=== PATIENT | male | born 1990 | race Caucasian/White ===

== ENCOUNTER 2023-01-13 15:38 | Inpatient (IN) | payer OTHER, BC ==
[~2023-01-13 15:38] MED LIST: Iopamidol-370 76% 500 ML MDV (1 ML CHARGE) ONE
[2023-01-13] MEDS ORDERED: fentaNYL 50 mcg/mL 1 mL Vial ONE (15:49)
[2023-01-13 16:04] LABS: #Eosinphils 0.1 thou/uL (0.0-0.7); #Monocytes 0.6 thou/uL (0.11-0.59); #Neutrophils 6.2 thou/uL (1.40-6.50); %Basophils 0.4 % (0.0-1.0); %Eosinophils 1.2 % (0.0-10.0); %Lymphocytes 23.9 % (21.0-51.0); %Monocytes 6.2 % (0.0-10.0); %Neutrophils 67.9 % (42.0-75.0); Hemoglobin 16.8 g/dL (14.0-18.0); Mean Corpuscular HGB CONC 34.3 g/dL (32.0-36.0); Mean Corpuscular Hemoglobin 31.1 pg (27.0-31.0); Mean Corpuscular Volume 90.7 fl (78.0-98.0); Mean Platelet Volume 9.8 fL (7.4-10.4); Platelet Count 215 10x3/uL (130-400); RBC Distribution Width 13.2 % (11.5-14.5); White Blood Cell (WBC) Count 9.1 10x3/uL (4.8-10.8)
[2023-01-13] MEDS ORDERED: Bacitracin 1 PK ONE (16:06)
[2023-01-13] MEDS ORDERED: Lidocaine 1% w/Epinephrine 1:100K 20 ML VIAL ONE (16:06)
[2023-01-13] MEDS ORDERED: Ketorolac Tromethamine 30 MG/ML VIAL ONE (16:18)
[2023-01-13] MEDS ORDERED: Ondansetron PF 4 MG/2 ML Vial ONE (16:22)
[2023-01-13 16:31] LABS: ALT (SGPT) 41 U/L (8-55); AST (SGOT) 48 U/L (5-34); Albumin 4.6 g/dL (3.5-5.0); Alkaline Phosphatase 47 U/L (40-110); Anion Gap 15 mmol/L (10-20); BUN (Urea Nitrogen) 22 mg/dL (8.9-20.6); Bilirubin, Total 0.8 mg/dL (0.2-1.2); Calc. Creatinine Clearance 0 mL/min (70-130); Calcium 9.5 mg/dL (7.8-10.44); Carbon Dioxide 22 mmol/L (22-29); Chloride 105 mmol/L (98-107); Estimated GFR 81; Globulin 2.5 g/dL (2.4-3.5); Glucose 103 mg/dL (70-105); Lipase 64 U/L (8-78); Potassium 3.6 mmol/L (3.5-5.1); Protein, Total 7.1 g/dL (6.0-8.3); Sodium 138 mmol/L (136-145)
[2023-01-13] MEDS ORDERED: Ipratropium/Albuterol 3 ML NEB NEB PRN (17:34)
[2023-01-13] MEDS ORDERED: hydrALAZINE 20 MG/ML VIAL SLOW IVP PRN (17:34)
[2023-01-13] MEDS ORDERED: Ondansetron PF 4 MG/2 ML Vial IVP PRN (17:34)
[2023-01-13] MEDS ORDERED: Glucagon 1 MG/ML KIT IM PRN (17:34)
[2023-01-13] MEDS ORDERED: Dextrose 50% Abboject 50 ML SYRINGE SLOW IVP PRN (17:34)
[2023-01-13] MEDS ORDERED: TETANUS, DIPHTHERIA TOX,ADULT (TDVAX) 0.5 ML VIAL IM ONE (17:34)
[2023-01-13] MEDS ORDERED: Dextrose 5% in Water 1,000 ML IV PRN (17:34)
[2023-01-13] MEDS ORDERED: Morphine 4 MG/ML VIAL ONE (18:50)
[2023-01-13] MEDS: Sodium Chloride 0.9% 1,000 ML IV SCH (20:23)
[2023-01-13] MEDS: Acetaminophen 500 MG TAB PO SCH (20:24)
[2023-01-13] MEDS: traMADol HCl 50 MG TAB PO PRN (20:26)
[2023-01-13] MEDS: Famotidine/PF 20 mg/2ml Vial SLOW IVP SCH (20:27)
[2023-01-13 21:46] LABS: #Monocytes 0.8 thou/uL (0.11-0.59); #Neutrophils 10.4 thou/uL (1.40-6.50); %Basophils 0.2 % (0.0-1.0); %Eosinophils 0.1 % (0.0-10.0); %Lymphocytes 9.5 % (21.0-51.0); %Neutrophils 83.8 % (42.0-75.0); Hematocrit 44.1 % (42.0-52.0); Hemoglobin 14.9 g/dL (14.0-18.0); Mean Corpuscular HGB CONC 33.8 g/dL (32.0-36.0); Mean Corpuscular Hemoglobin 30.7 pg (27.0-31.0); Mean Corpuscular Volume 90.9 fl (78.0-98.0); Mean Platelet Volume 9.9 fL (7.4-10.4); Platelet Count 195 10x3/uL (130-400); RBC Distribution Width 13.2 % (11.5-14.5); Red Blood Cell (RBC) Count 4.85 mill/uL (4.70-6.10); White Blood Cell (WBC) Count 12.4 10x3/uL (4.8-10.8)
[2023-01-13] MEDS: Morphine 2 MG/ML VIAL SLOW IVP PRN (23:03)
[2023-01-13 23:39] VITALS: BMI 32.5
[2023-01-14] MEDS: Acetaminophen 500 MG TAB PO SCH ×4 (02:00→20:20)
[2023-01-14] MEDS: Morphine 2 MG/ML VIAL SLOW IVP PRN ×2 (03:51→07:30)
[2023-01-14] MEDS: Sodium Chloride 0.9% 1,000 ML IV SCH ×2 (03:58→09:59)
[2023-01-14 06:50] LABS: Bacteria/HPF None Seen HPF (None Seen); Bilirubin Negative (Negative); Blood, Urine 3+ (Negative); Clarity Turbid (Clear); Glucose, Urine (Dipstick) Normal (Negative); Ketone, Urine 40 mg/dL (Negative); Leukocyte Negative Leu/uL (Negative); Nitrite Negative (Negative); Protein, Urine (Dipstick) 50 mg/dL (Neg-Trace); RBC/HPF Greater than 50 HPF (0-3); Squamous Epithelial None Seen HPF (0-3); Urobilinogen Normal mg/dL (Less than 2); WBC/HPF 0-3 HPF (0-3); pH, Urine 6.5 (5.0-9.0)
[2023-01-14 06:59] LABS: Specific Gravity, Urine 1.053 (1.002-1.036)
[2023-01-14 07:03] LABS: #Eosinphils 0.1 thou/uL (0.0-0.7); #Monocytes 0.9 thou/uL (0.11-0.59); #Neutrophils 8.3 thou/uL (1.40-6.50); %Basophils 0.2 % (0.0-1.0); %Eosinophils 1.1 % (0.0-10.0); %Lymphocytes 14.1 % (21.0-51.0); %Monocytes 8.6 % (0.0-10.0); %Neutrophils 75.5 % (42.0-75.0); Hematocrit 46.6 % (42.0-52.0); Hemoglobin 15.4 g/dL (14.0-18.0); Mean Corpuscular Hemoglobin 30.6 pg (27.0-31.0); Mean Corpuscular Volume 92.6 fl (78.0-98.0); Mean Platelet Volume 9.7 fL (7.4-10.4); Platelet Count 173 10x3/uL (130-400); RBC Distribution Width 13.4 % (11.5-14.5); Red Blood Cell (RBC) Count 5.03 mill/uL (4.70-6.10)
[2023-01-14 07:27] LABS: Anion Gap 7 mmol/L (10-20); BUN (Urea Nitrogen) 22 mg/dL (8.9-20.6); Calc. Creatinine Clearance 147 mL/min (70-130); Calcium 8.8 mg/dL (7.8-10.44); Carbon Dioxide 29 mmol/L (22-29); Chloride 109 mmol/L (98-107); Estimated GFR 86; Glucose 84 mg/dL (70-105); Potassium 4.9 mmol/L (3.5-5.1); Sodium 140 mmol/L (136-145)
[2023-01-14] MEDS: Famotidine/PF 20 mg/2ml Vial SLOW IVP SCH ×2 (09:59→20:20)
[2023-01-14] MEDS: Cyclobenzaprine 10 MG TAB PO PRN ×2 (10:08→20:19)
[2023-01-14] MEDS: traMADol HCl 50 MG TAB PO SCH ×3 (14:14→23:49)
[2023-01-14 19:51] LABS: #Eosinphils 0.2 thou/uL (0.0-0.7); #Monocytes 0.8 thou/uL (0.11-0.59); #Neutrophils 4.5 thou/uL (1.40-6.50); %Basophils 0.4 % (0.0-1.0); %Eosinophils 2.1 % (0.0-10.0); %Lymphocytes 34.8 % (21.0-51.0); %Monocytes 9.4 % (0.0-10.0); %Neutrophils 53.1 % (42.0-75.0); Hemoglobin 15.1 g/dL (14.0-18.0); Mean Corpuscular HGB CONC 33.6 g/dL (32.0-36.0); Mean Corpuscular Hemoglobin 30.8 pg (27.0-31.0); Mean Corpuscular Volume 91.8 fl (78.0-98.0); Mean Platelet Volume 9.5 fL (7.4-10.4); Platelet Count 163 10x3/uL (130-400); RBC Distribution Width 13.3 % (11.5-14.5); White Blood Cell (WBC) Count 8.4 10x3/uL (4.8-10.8)
[2023-01-14] MEDS: traMADol HCl 50 MG TAB PO PRN (20:19)
[2023-01-15] MEDS: Acetaminophen 500 MG TAB PO SCH ×2 (02:37→09:02)
[2023-01-15] MEDS: traMADol HCl 50 MG TAB PO PRN ×2 (02:37→09:04)
[2023-01-15] MEDS: Sodium Chloride 0.9% 1,000 ML IV SCH ×3 (02:50→19:23)
[2023-01-15] MEDS ORDERED: Morphine 2 MG/ML VIAL SLOW IVP SCH (03:15)
[2023-01-15] MEDS: traMADol HCl 50 MG TAB PO SCH ×2 (05:49→19:23)
[2023-01-15 05:55] LABS: #Eosinphils 0.2 thou/uL (0.0-0.7); #Monocytes 0.7 thou/uL (0.11-0.59); #Neutrophils 4.3 thou/uL (1.40-6.50); %Basophils 0.4 % (0.0-1.0); %Eosinophils 2.7 % (0.0-10.0); %Lymphocytes 32.9 % (21.0-51.0); %Monocytes 8.5 % (0.0-10.0); %Neutrophils 55.1 % (42.0-75.0); Hematocrit 45.2 % (42.0-52.0); Hemoglobin 14.9 g/dL (14.0-18.0); Mean Corpuscular Hemoglobin 30.7 pg (27.0-31.0); Mean Corpuscular Volume 93.2 fl (78.0-98.0); Mean Platelet Volume 9.6 fL (7.4-10.4); Platelet Count 158 10x3/uL (130-400); RBC Distribution Width 13.4 % (11.5-14.5); Red Blood Cell (RBC) Count 4.85 mill/uL (4.70-6.10); White Blood Cell (WBC) Count 7.7 10x3/uL (4.8-10.8)
[2023-01-15 06:29] LABS: Anion Gap 8 mmol/L (10-20); BUN (Urea Nitrogen) 21 mg/dL (8.9-20.6); CK (CPK) 216 U/L (30-200); Calc. Creatinine Clearance 147 mL/min (70-130); Calcium 8.6 mg/dL (7.8-10.44); Carbon Dioxide 27 mmol/L (22-29); Chloride 107 mmol/L (98-107); Estimated GFR 86; Glucose 96 mg/dL (70-105); Sodium 137 mmol/L (136-145)
[2023-01-15] MEDS: Famotidine/PF 20 mg/2ml Vial SLOW IVP SCH (09:02)
[2023-01-15 09:24] VITALS: BP 125/80; TEMP 97.8
== END 2023-01-15 13:14 | disposition home or self-care (01) | DRG 964 ==
LOC: ERS 15:38 → SURG B 18:58
PROVIDERS: ADMIT Surgery; ATTEND Surgery
DX: S36.031A Moderate laceration of spleen, initial encounter (principal); S32.018A Other fracture of first lumbar vertebra, initial encounter for closed fracture; S37.051A Moderate laceration of right kidney, initial encounter; S32.028A Other fracture of second lumbar vertebra, initial encounter for closed fracture; S32.038A Other fracture of third lumbar vertebra, initial encounter for closed fracture; S37.818A Other injury of adrenal gland, initial encounter; R91.1 Solitary pulmonary nodule; Z98.52 Vasectomy status
CPT/HCPCS: 36415; 70450; 71260; 72125; 74177; 80048; 80053; 81001; 82550; 83690; 85025; 86850; 86900; 86901; 93005; 96374; 96375; G0390; J1885; J2270; J2272; J2405; J3010; J7050; Q9967; S0028

== ENCOUNTER 2023-11-02 08:45 | Outpatient (CLI) | payer BC | END 2023-11-02 08:46 | LOC: PET 08:45 | PROVIDERS: ATTEND Student in an Organized Health Care Education/Training Program | DX: R91.8 Other nonspecific abnormal finding of lung field (principal) | CPT/HCPCS: 78815; A9552 ==